=== PATIENT | female | born 1940 | race Caucasian/White ===

== ENCOUNTER 2017-05-26 16:37 | Inpatient (IN) | payer MEDICARE, OTHER ==
[~2017-05-26] VITALS: Ht 165.1 cm; Wt 91.6 kg
[2017-05-26] MEDS ORDERED: ALBUTEROL SULFATE 2.5 MG/3 ML NEBU NEB ONE ×2 (17:00→18:00)
[2017-05-26] MEDS ORDERED: IPRATROPIUM BROMIDE 0.5 MG/2.5 ML NEBU NEB ONE (17:00)
[2017-05-26] MEDS ORDERED: LISI10TA5 PO (17:13)
[2017-05-26] MEDS ORDERED: IPRATROPIUM BROMIDE 0.5 MG/2.5 ML NEBU ONE (17:21)
[2017-05-26] MEDS ORDERED: ALBUTEROL SULFATE 2.5 MG/3 ML NEBU ONE ×2 (17:21→19:28)
[2017-05-26 17:45] LABS: ABG BASE EXCESS 10.4 mmol/L; ABG HCO3 46.1 mmol/L; ABG PCO2 136.2 mmHg (35.0-45.0); ABG PH 7.147 (7.350-7.450); ABG PO2 84.9 mmHg (75.0-100.0); ABG SITE LEFT RADIAL; ABG TOTAL HEMOGLOBIN 16.1 G/dL (12.0-16.0); COHb 2.8 % (0.5-1.5); MetHb 0.2 % (0.0-1.5); O2Hb 90.4 % (94.0-97.0); VENT MODE BIPAP 15/5
[2017-05-26] MEDS ORDERED: methylPREDNISolone SOD SUCC 125 MG/2 ML VIAL IV ONE (18:00)
[2017-05-26 18:12] LABS: ALANINE AMINOTRANSFERASE 126 U/L (14-59); ALKALINE PHOSPHATASE 91 U/L (50-136); ASPARTATE AMINOTRANSFERASE 41 U/L (15-37); BASOPHILS % (AUTO) 0.4 % (0.0-2.0); BILIRUBIN,DIRECT 0.2 mg/dL (0.0-0.2); BILIRUBIN,TOTAL 0.5 mg/dL (0.2-1.0); CARBON DIOXIDE 37 mmol/L (21-32); CHLORIDE 99 mmol/L (98-107); CREATININE 1.2 mg/dL (0.6-1.3); EOSINOPHILS % (AUTO) 0.2 % (0.0-7.0); GLUCOSE 218 mg/dL (74-106); HEMATOCRIT 48.2 % (31.2-41.9); HEMOGLOBIN 15.5 g/dL (10.9-14.3); LYMPHOCYTES # (AUTO) 1.7 K/uL (20.0-40.0); LYMPHOCYTES % (AUTO) 12.6 % (20.5-51.5); MEAN CORPUSCULAR HEMOGLOBIN 29.2 uug (24.7-32.8); MEAN CORPUSCULAR HGB CONC 32 g/dL (32.3-35.6); MEAN CORPUSCULAR VOLUME 90.7 fL (75.5-95.3); MONOCYTES # (AUTO) 1.3 K/uL (2.0-10.0); MONOCYTES % (AUTO) 9.3 % (0.0-11.0); NEUTROPHILS # (AUTO) 10.7 K/uL (1.8-8.9); NEUTROPHILS % (AUTO) 77.5 % (38.5-71.5); PLATELET COUNT (AUTO) 400 K/uL (179-408); POTASSIUM 4.9 mmol/L (3.5-5.1); RED BLOOD CELL COUNT(AUTO) 5.31 MIL/uL (3.63-4.92); TOTAL PROTEIN, SERUM 7.5 g/dL (6.4-8.2); UREA NITROGEN, BLOOD 42 mg/dL (7-18); WHITE BLOOD COUNT (AUTO) 13.7 K/uL (3.8-11.8)
[2017-05-26] MEDS ORDERED: methylPREDNISolone SOD SUCC 125 MG/2 ML VIAL ONE (18:17)
[2017-05-26] MEDS ORDERED: FUROSEMIDE 20 MG/2 ML VIAL IV ONE (18:30)
[2017-05-26] MEDS ORDERED: LEVOFLOXACIN 750 MG/D5W 150 ML PIGGYBACK IV ONE (18:30)
[2017-05-26 18:32] LABS: BAND % (MANUAL) 1 % (0-10); LYMPHOCYTES % (MANUAL) 13 % (20-40); MONOCYTES % (MANUAL) 8 % (2-10)
[2017-05-26 18:36] LABS: NEUTROPHILS % (MANUAL) 78 % (42-75)
[2017-05-26] MEDS ORDERED: FUROSEMIDE 40 MG/4 ML VIAL ONE (19:00)
[2017-05-26] MEDS ORDERED: LEVOFLOXACIN 750MG/D5W 150 ML IV ONE (19:00)
[2017-05-26 19:06] LABS: ABG BASE EXCESS 10.2 mmol/L; ABG PCO2 128.1 mmHg (35.0-45.0); ABG PH 7.164 (7.350-7.450); ABG PO2 68.4 mmHg (75.0-100.0); ABG SITE LEFT RADIAL; ABG TOTAL HEMOGLOBIN 15.9 G/dL (12.0-16.0); COHb 2.6 % (0.5-1.5); MetHb 0.3 % (0.0-1.5); O2Hb 86.1 % (94.0-97.0); VENT MODE BIPAP
[2017-05-26 19:31] LABS: *BLOOD, URINE 2+ (NEGATIVE); *CLARITY,URINE SLIGHTLY CLOUDY (CLEAR); *COLOR,URINE YELLOW (YELLOW); *KETONES,URINE TRACE (NEGATIVE); *UROBILINOGEN,URINE >=8.0 E.U./dl (NORMAL); LEUKOCYTE ESTERASE ,URINE NEGATIVE (NEGATIVE); NITRITE, URINE NEGATIVE (NEGATIVE); UGLUCOSE NEGATIVE (NEGATIVE)
[2017-05-26 19:37] LABS: *PROTEIN,URINE 3+ (NEGATIVE)
[2017-05-26 19:38] LABS: *BILIRUBIN,URIN 1+ (NEGATIVE)
[2017-05-26 19:39] LABS: BACTERIA,URINE FEW /HPF (NONE SEEN); SQUAMOUS EPITHELIAL CELL,UR FEW /HPF (NONE SEEN); WBC,URINE 0-3 /HPF (0-3)
[2017-05-27] VITALS (9 sets, daily range): BP systolic 92–127; BP diastolic 59–81
[2017-05-27] MEDS ORDERED: Z GUARD REMEDY PASTE 57 GM TUBE TOP PRN ×2 (00:45→11:30)
[2017-05-27] MEDS ORDERED: ZOLPIDEM 5 MG TABLET PO PRN (00:45)
[2017-05-27] MEDS ORDERED: ONDANSETRON 4 MG/2 ML VIAL IV PRN (00:45)
[2017-05-27] MEDS ORDERED: ACETAMINOPHEN 325 MG TABLET PO PRN (00:45)
[2017-05-27] MEDS ORDERED: MAGNESIUM HYDROXIDE 30 ML LIQUID UDC PO PRN (00:45)
[2017-05-27] MEDS ORDERED: HYDROCODONE/APAP 5-325MG TABLET PO PRN (00:45)
[2017-05-27] MEDS ORDERED: ENOXAPARIN SODIUM 40 MG/0.4 ML DISP.SYRIN SQ SCH (01:00)
[2017-05-27 01:29] LABS: ABG BASE EXCESS 7.5 mmol/L; ABG HCO3 36.6 mmol/L; ABG PCO2 72.3 mmHg (35.0-45.0); ABG PH 7.322 (7.350-7.450); ABG PO2 79.1 mmHg (75.0-100.0); ABG SITE LEFT RADIAL; COHb 1.9 % (0.5-1.5); MetHb 0.2 % (0.0-1.5); O2Hb 92.3 % (94.0-97.0); VENT MODE BIPAP
[2017-05-27] MEDS: methylPREDNISolone SOD SUCC 125 MG/2 ML VIAL IV SCH ×4 (02:02→22:03)
[2017-05-27] MEDS: ENOXAPARIN SODIUM 40 MG/0.4 ML DISP.SYRIN SQ SCH ×3 (02:02→22:03)
[2017-05-27] MEDS ORDERED: HYDROCORTISONE SOD SUCCINATE 100 MG/2 ML VIAL IV ONE (02:12)
[2017-05-27] MEDS ORDERED: ENOXAPARIN SODIUM 40 MG/0.4 ML DISP.SYRIN SQ ONE ×2 (02:12→02:31)
[2017-05-27 06:18] LABS: BASOPHILS # (AUTO) 0.1 K/uL (0.0-8.0); BASOPHILS % (AUTO) 0.4 % (0.0-2.0); HEMATOCRIT 44.9 % (31.2-41.9); HEMOGLOBIN 14.3 g/dL (10.9-14.3); LYMPHOCYTES # (AUTO) 0.7 K/uL (20.0-40.0); LYMPHOCYTES % (AUTO) 4.4 % (20.5-51.5); MEAN CORPUSCULAR HEMOGLOBIN 28.6 uug (24.7-32.8); MEAN CORPUSCULAR HGB CONC 32 g/dL (32.3-35.6); MEAN CORPUSCULAR VOLUME 89.5 fL (75.5-95.3); MONOCYTES # (AUTO) 0.8 K/uL (2.0-10.0); NEUTROPHILS # (AUTO) 14.8 K/uL (1.8-8.9); NEUTROPHILS % (AUTO) 90.2 % (38.5-71.5); PLATELET COUNT (AUTO) 310 K/uL (179-408); RED BLOOD CELL COUNT(AUTO) 5.02 MIL/uL (3.63-4.92); WHITE BLOOD COUNT (AUTO) 16.3 K/uL (3.8-11.8)
[2017-05-27 06:34] LABS: CARBON DIOXIDE 36 mmol/L (21-32); CHLORIDE 105 mmol/L (98-107); CHOLESTEROL 120 mg/dL (<200); CREATININE 0.9 mg/dL (0.6-1.3); GLUCOSE 163 mg/dL (74-106); HDL CHOLESTEROL 33 mg/dL (40-60); MAGNESIUM 2.1 mg/dL (1.8-2.4); PHOSPHOROUS 4.2 mg/dL (2.5-4.9); POTASSIUM 4.5 mmol/L (3.5-5.1); TRIGLYCERIDES 91 MG/DL (30-150); UREA NITROGEN, BLOOD 38 mg/dL (7-18)
[2017-05-27] MEDS: IPRATROPIUM BROMIDE 0.5 MG/2.5 ML NEBU NEB PRN (08:20)
[2017-05-27] MEDS: ALBUTEROL SULFATE 2.5 MG/ 0.5 ML NEBU NEB PRN (08:20)
[2017-05-27] MEDS: LISINOPRIL 10 MG TABLET PO SCH (09:54)
[2017-05-27] MEDS: FUROSEMIDE 40 MG/4 ML VIAL IV SCH (09:57)
[2017-05-27] MEDS: LEVOFLOXACIN 750MG/D5W 750 MG in PREMIXED 1 EACH IV SCH (18:57)
[2017-05-27] MEDS: NYSTATIN POWDER 15 GM BOTTLE TOP SCH (22:04)
[2017-05-28] VITALS (11 sets, daily range): BP systolic 88–122; BP diastolic 47–66
[2017-05-28] MEDS ORDERED: IOHEXOL 350 100 ML INFUS..BTL ONE (00:13)
[2017-05-28] MEDS ORDERED: NORMAL SALINE FLUSH 10 ML DISP.SYRIN ONE (00:13)
[2017-05-28] MEDS ORDERED: IV NORMAL SALINE 250 ML IV ONE (00:13)
[2017-05-28] MEDS: methylPREDNISolone SOD SUCC 125 MG/2 ML VIAL IV SCH ×3 (06:05→21:12)
[2017-05-28] MEDS: ALBUTEROL SULFATE 2.5 MG/ 0.5 ML NEBU NEB PRN ×2 (08:10→23:03)
[2017-05-28] MEDS: IPRATROPIUM BROMIDE 0.5 MG/2.5 ML NEBU NEB PRN ×2 (08:10→23:03)
[2017-05-28] MEDS: FUROSEMIDE 40 MG/4 ML VIAL IV SCH (08:13)
[2017-05-28] MEDS: LISINOPRIL 10 MG TABLET PO SCH (08:13)
[2017-05-28] MEDS: NYSTATIN POWDER 15 GM BOTTLE TOP SCH ×2 (08:14→20:34)
[2017-05-28] MEDS: LEVOFLOXACIN 750MG/D5W 750 MG in PREMIXED 1 EACH IV SCH (20:18)
[2017-05-28] MEDS: ENOXAPARIN SODIUM 40 MG/0.4 ML DISP.SYRIN SQ SCH (20:29)
[2017-05-29 00:44] VITALS: BP 101/54
[2017-05-29 04:37] VITALS: BP 106/69
[2017-05-29] MEDS: methylPREDNISolone SOD SUCC 125 MG/2 ML VIAL IV SCH ×3 (05:04→21:59)
[2017-05-29 06:53] LABS: BASOPHILS % (AUTO) 0.2 % (0.0-2.0); HEMATOCRIT 45.8 % (31.2-41.9); HEMOGLOBIN 14.7 g/dL (10.9-14.3); LYMPHOCYTES # (AUTO) 0.5 K/uL (20.0-40.0); LYMPHOCYTES % (AUTO) 3.2 % (20.5-51.5); MEAN CORPUSCULAR HEMOGLOBIN 28.7 uug (24.7-32.8); MEAN CORPUSCULAR HGB CONC 32 g/dL (32.3-35.6); MEAN CORPUSCULAR VOLUME 89.7 fL (75.5-95.3); MONOCYTES # (AUTO) 0.6 K/uL (2.0-10.0); MONOCYTES % (AUTO) 3.6 % (0.0-11.0); NEUTROPHILS # (AUTO) 15.6 K/uL (1.8-8.9); PLATELET COUNT (AUTO) 318 K/uL (179-408); RED BLOOD CELL COUNT(AUTO) 5.11 MIL/uL (3.63-4.92); WHITE BLOOD COUNT (AUTO) 16.8 K/uL (3.8-11.8)
[2017-05-29 07:02] LABS: CHLORIDE 102 mmol/L (98-107); GLUCOSE 250 mg/dL (74-106); PHOSPHOROUS 3.7 mg/dL (2.5-4.9); POTASSIUM 4.6 mmol/L (3.5-5.1); UREA NITROGEN, BLOOD 39 mg/dL (7-18)
[2017-05-29] MEDS: LISINOPRIL 10 MG TABLET PO SCH (08:05)
[2017-05-29] MEDS: ASPIRIN EC 81 MG TABLET.DR PO SCH (08:05)
[2017-05-29] MEDS: NYSTATIN POWDER 15 GM BOTTLE TOP SCH ×2 (08:06→21:00)
[2017-05-29] MEDS: FUROSEMIDE 20 MG/2 ML VIAL IVP SCH (08:39)
[2017-05-29] MEDS ORDERED: FUROSEMIDE 40 MG/4 ML VIAL IV SCH (09:00)
[2017-05-29 09:02] LABS: CARBON DIOXIDE 41 mmol/L (21-32)
[2017-05-29 11:00] LABS: MAGNESIUM 2.2 mg/dL (1.8-2.4)
[2017-05-29 11:36] VITALS: BP 101/70
[2017-05-29] MEDS ORDERED: LORAZEPAM 2 MG/1 ML VIAL IV ONE (15:30)
[2017-05-29 16:10] VITALS: BP 102/65
[2017-05-29] MEDS: LEVOFLOXACIN 750MG/D5W 750 MG in PREMIXED 1 EACH IV SCH (18:02)
[2017-05-29 20:00] VITALS: BP 115/76
[2017-05-29] MEDS: ENOXAPARIN SODIUM 40 MG/0.4 ML DISP.SYRIN SQ SCH (22:00)
[2017-05-30 04:41] VITALS: BP 116/86
[2017-05-30] MEDS: methylPREDNISolone SOD SUCC 125 MG/2 ML VIAL IV SCH ×3 (06:02→21:28)
[2017-05-30 07:31] LABS: BASOPHILS % (AUTO) 0.1 % (0.0-2.0); HEMATOCRIT 48.7 % (31.2-41.9); HEMOGLOBIN 15.8 g/dL (10.9-14.3); LYMPHOCYTES # (AUTO) 0.4 K/uL (20.0-40.0); LYMPHOCYTES % (AUTO) 2.3 % (20.5-51.5); MEAN CORPUSCULAR HEMOGLOBIN 29.1 uug (24.7-32.8); MEAN CORPUSCULAR HGB CONC 32 g/dL (32.3-35.6); MEAN CORPUSCULAR VOLUME 89.6 fL (75.5-95.3); MONOCYTES # (AUTO) 0.6 K/uL (2.0-10.0); MONOCYTES % (AUTO) 3.8 % (0.0-11.0); NEUTROPHILS # (AUTO) 14.4 K/uL (1.8-8.9); NEUTROPHILS % (AUTO) 93.8 % (38.5-71.5); PLATELET COUNT (AUTO) 360 K/uL (179-408); RED BLOOD CELL COUNT(AUTO) 5.44 MIL/uL (3.63-4.92); WHITE BLOOD COUNT (AUTO) 15.4 K/uL (3.8-11.8)
[2017-05-30 07:38] LABS: CHLORIDE 99 mmol/L (98-107); CREATININE 0.9 mg/dL (0.6-1.3); GLUCOSE 232 mg/dL (74-106); MAGNESIUM 2.2 mg/dL (1.8-2.4); PHOSPHOROUS 3.7 mg/dL (2.5-4.9); POTASSIUM 4.4 mmol/L (3.5-5.1); UREA NITROGEN, BLOOD 34 mg/dL (7-18)
[2017-05-30] MEDS ORDERED: ACETAzolamide SODIUM 500 MG VIAL IV ONE (08:00)
[2017-05-30 08:05] LABS: CARBON DIOXIDE 44 mmol/L (21-32)
[2017-05-30] MEDS: ASPIRIN EC 81 MG TABLET.DR PO SCH (08:13)
[2017-05-30] MEDS: LISINOPRIL 10 MG TABLET PO SCH (08:13)
[2017-05-30] MEDS: FUROSEMIDE 20 MG/2 ML VIAL IVP SCH (08:25)
[2017-05-30] MEDS: NYSTATIN POWDER 15 GM BOTTLE TOP SCH ×2 (08:34→20:29)
[2017-05-30] MEDS ORDERED: LORAZEPAM 2 MG/1 ML VIAL IV PRN (14:00)
[2017-05-30 14:36] LABS: ABG HCO3 52.9 mmol/L; ABG PCO2 125.5 mmHg (35.0-45.0); ABG PH 7.243 (7.350-7.450); ABG SITE RIGHT RADIAL; ABG TOTAL HEMOGLOBIN 16.3 G/dL (12.0-16.0); COHb 1.9 % (0.5-1.5); MetHb 0.2 % (0.0-1.5); O2Hb 84.6 % (94.0-97.0); VENT MODE Nasal Cannula
[2017-05-30] MEDS: NICOTINE 21 MG/24HR PATCH TD SCH (14:42)
[2017-05-30] MEDS ORDERED: DEXTROSE 50% 50 ML DISP.SYRIN IV PRN (16:00)
[2017-05-30 16:04] VITALS: BP 118/57
[2017-05-30] MEDS: BLOOD SUGAR DIAGNOSTIC 1 EACH STRIP VI SCH ×2 (16:26→21:21)
[2017-05-30] MEDS: ACETAzolamide SODIUM 500 MG VIAL IV SCH (16:40)
[2017-05-30] MEDS: INSULIN REGULAR, HUMAN 300 UNIT/3 ML VIAL SQ PRN (16:48)
[2017-05-30] MEDS: LEVOFLOXACIN 750MG/D5W 750 MG in PREMIXED 1 EACH IV SCH (18:04)
[2017-05-30 20:00] VITALS: BP 111/72
[2017-05-30] MEDS: IPRATROPIUM BROMIDE 0.5 MG/2.5 ML NEBU NEB SCH (20:42)
[2017-05-30] MEDS: ALBUTEROL SULFATE 2.5 MG/3 ML NEBU NEB SCH (20:42)
[2017-05-30] MEDS: ENOXAPARIN SODIUM 40 MG/0.4 ML DISP.SYRIN SQ SCH (21:29)
[2017-05-30] MEDS: INSULIN REGULAR, HUMAN 300 UNITS/3 ML VIAL SQ PRN (21:34)
[2017-05-31 00:20] VITALS: BP 115/56
[2017-05-31 01:05] LABS: ABG BASE EXCESS 16.2 mmol/L; ABG HCO3 47.9 mmol/L; ABG PCO2 96.3 mmHg (35.0-45.0); ABG PH 7.315 (7.350-7.450); ABG PO2 78.7 mmHg (75.0-100.0); ABG SITE RIGHT BRACHIAL; ABG TOTAL HEMOGLOBIN 15.3 G/dL (12.0-16.0); COHb 1.7 % (0.5-1.5); MetHb 0.2 % (0.0-1.5); O2Hb 93.2 % (94.0-97.0); VENT MODE BIPAP
[2017-05-31 04:00] VITALS: BP 104/59
[2017-05-31] MEDS: BLOOD SUGAR DIAGNOSTIC 1 EACH STRIP VI SCH ×4 (06:30→21:48)
[2017-05-31] MEDS: methylPREDNISolone SOD SUCC 125 MG/2 ML VIAL IV SCH ×3 (06:30→21:42)
[2017-05-31 06:51] LABS: BASOPHILS % (AUTO) 0.1 % (0.0-2.0); HEMATOCRIT 50.5 % (31.2-41.9); HEMOGLOBIN 15.7 g/dL (10.9-14.3); LYMPHOCYTES # (AUTO) 0.5 K/uL (20.0-40.0); LYMPHOCYTES % (AUTO) 3.6 % (20.5-51.5); MEAN CORPUSCULAR HEMOGLOBIN 28.4 uug (24.7-32.8); MEAN CORPUSCULAR HGB CONC 31 g/dL (32.3-35.6); MEAN CORPUSCULAR VOLUME 91.4 fL (75.5-95.3); MONOCYTES # (AUTO) 0.6 K/uL (2.0-10.0); MONOCYTES % (AUTO) 4.7 % (0.0-11.0); NEUTROPHILS # (AUTO) 11.7 K/uL (1.8-8.9); NEUTROPHILS % (AUTO) 91.6 % (38.5-71.5); PLATELET COUNT (AUTO) 286 K/uL (179-408); RED BLOOD CELL COUNT(AUTO) 5.52 MIL/uL (3.63-4.92); WHITE BLOOD COUNT (AUTO) 12.8 K/uL (3.8-11.8)
[2017-05-31 07:11] LABS: ALANINE AMINOTRANSFERASE 53 U/L (14-59); ALKALINE PHOSPHATASE 51 U/L (50-136); ASPARTATE AMINOTRANSFERASE 9 U/L (15-37); BILIRUBIN,TOTAL 0.4 mg/dL (0.2-1.0); CHLORIDE 102 mmol/L (98-107); CREATININE 0.8 mg/dL (0.6-1.3); GLUCOSE 154 mg/dL (74-106); MAGNESIUM 2.6 mg/dL (1.8-2.4); PHOSPHOROUS 4.4 mg/dL (2.5-4.9); POTASSIUM 4.7 mmol/L (3.5-5.1); UREA NITROGEN, BLOOD 38 mg/dL (7-18)
[2017-05-31] MEDS ORDERED: ACETAzolamide SODIUM 500 MG VIAL IV ONE (08:00)
[2017-05-31] MEDS: IPRATROPIUM BROMIDE 0.5 MG/2.5 ML NEBU NEB SCH ×4 (08:07→19:39)
[2017-05-31] MEDS: ALBUTEROL SULFATE 2.5 MG/3 ML NEBU NEB SCH ×4 (08:07→19:38)
[2017-05-31 08:26] LABS: ABG HCO3 44.5 mmol/L; ABG PCO2 84.1 mmHg (35.0-45.0); ABG PH 7.341 (7.350-7.450); ABG PO2 76.6 mmHg (75.0-100.0); ABG SITE LEFT RADIAL; ABG TOTAL HEMOGLOBIN 15.6 G/dL (12.0-16.0); COHb 1.7 % (0.5-1.5); MetHb 0.3 % (0.0-1.5); O2Hb 93.5 % (94.0-97.0); VENT MODE BIPAP
[2017-05-31] MEDS: ASPIRIN EC 81 MG TABLET.DR PO SCH (08:45)
[2017-05-31] MEDS: NICOTINE 21 MG/24HR PATCH TD SCH (08:46)
[2017-05-31] MEDS: FUROSEMIDE 20 MG/2 ML VIAL IVP SCH (08:46)
[2017-05-31] MEDS: NYSTATIN POWDER 15 GM BOTTLE TOP SCH ×2 (08:46→21:42)
[2017-05-31] MEDS: LISINOPRIL 10 MG TABLET PO SCH (08:53)
[2017-05-31] MEDS: INSULIN REGULAR, HUMAN 300 UNIT/3 ML VIAL SQ PRN ×4 (08:58→21:52)
[2017-05-31] MEDS: ACETAzolamide SODIUM 500 MG VIAL IV SCH (09:48)
[2017-05-31 11:45] VITALS: BP 107/58
[2017-05-31 15:44] VITALS: BP 106/55
[2017-05-31 19:41] VITALS: BP 110/58
[2017-05-31] MEDS: LEVOFLOXACIN 750MG/D5W 750 MG in PREMIXED 1 EACH IV SCH (19:43)
[2017-05-31] MEDS: ENOXAPARIN SODIUM 40 MG/0.4 ML DISP.SYRIN SQ SCH (21:46)
[2017-06-01] VITALS: BP 115/56
[2017-06-01 04:00] VITALS: BP 112/59
[2017-06-01] MEDS: methylPREDNISolone SOD SUCC 125 MG/2 ML VIAL IV SCH ×3 (05:49→22:50)
[2017-06-01 07:04] LABS: BASOPHILS # (AUTO) 0.1 K/uL (0.0-8.0); BASOPHILS % (AUTO) 0.8 % (0.0-2.0); HEMATOCRIT 49.8 % (31.2-41.9); HEMOGLOBIN 15.9 g/dL (10.9-14.3); LYMPHOCYTES # (AUTO) 0.3 K/uL (20.0-40.0); LYMPHOCYTES % (AUTO) 2.2 % (20.5-51.5); MEAN CORPUSCULAR HEMOGLOBIN 28.8 uug (24.7-32.8); MEAN CORPUSCULAR HGB CONC 32 g/dL (32.3-35.6); MEAN CORPUSCULAR VOLUME 90.4 fL (75.5-95.3); MONOCYTES # (AUTO) 0.5 K/uL (2.0-10.0); MONOCYTES % (AUTO) 4.1 % (0.0-11.0); NEUTROPHILS # (AUTO) 12.1 K/uL (1.8-8.9); NEUTROPHILS % (AUTO) 92.9 % (38.5-71.5); PLATELET COUNT (AUTO) 279 K/uL (179-408)
[2017-06-01] MEDS: ALBUTEROL SULFATE 2.5 MG/3 ML NEBU NEB SCH ×4 (07:11→19:20)
[2017-06-01 07:25] LABS: CHLORIDE 100 mmol/L (98-107); CREATININE 0.8 mg/dL (0.6-1.3); GLUCOSE 193 mg/dL (74-106); MAGNESIUM 2.7 mg/dL (1.8-2.4); PHOSPHOROUS 4.8 mg/dL (2.5-4.9); POTASSIUM 4.7 mmol/L (3.5-5.1); UREA NITROGEN, BLOOD 38 mg/dL (7-18)
[2017-06-01] MEDS: IPRATROPIUM BROMIDE 0.5 MG/2.5 ML NEBU NEB SCH ×4 (07:35→19:20)
[2017-06-01 07:41] LABS: CARBON DIOXIDE 40 mmol/L (21-32)
[2017-06-01 08:04] LABS: CARBON DIOXIDE 41 mmol/L (21-32)
[2017-06-01] MEDS: ASPIRIN EC 81 MG TABLET.DR PO SCH (08:39)
[2017-06-01] MEDS: BLOOD SUGAR DIAGNOSTIC 1 EACH STRIP VI SCH ×4 (08:39→22:23)
[2017-06-01] MEDS: FUROSEMIDE 20 MG/2 ML VIAL IVP SCH (08:40)
[2017-06-01] MEDS: LISINOPRIL 10 MG TABLET PO SCH (08:40)
[2017-06-01] MEDS: NICOTINE 21 MG/24HR PATCH TD SCH (08:40)
[2017-06-01] MEDS: INSULIN REGULAR, HUMAN 300 UNIT/3 ML VIAL SQ PRN ×3 (08:41→17:20)
[2017-06-01] MEDS: NYSTATIN POWDER 15 GM BOTTLE TOP SCH (08:42)
[2017-06-01 08:44] VITALS: BP 113/69
[2017-06-01] MEDS: ACETAzolamide SODIUM 500 MG VIAL IV SCH (09:04)
[2017-06-01 15:10] VITALS: BP 101/53
[2017-06-01 20:00] VITALS: BP 112/69
[2017-06-01] MEDS: LEVOFLOXACIN 750MG/D5W 750 MG in PREMIXED 1 EACH IV SCH (20:06)
[2017-06-01] MEDS: ENOXAPARIN SODIUM 40 MG/0.4 ML DISP.SYRIN SQ SCH (22:09)
[2017-06-01] MEDS: INSULIN REGULAR, HUMAN 300 UNITS/3 ML VIAL SQ PRN (22:20)
[2017-06-02] MEDS: NYSTATIN POWDER 15 GM BOTTLE TOP SCH ×2 (00:15→08:22)
[2017-06-02 00:25] VITALS: BP 120/67
[2017-06-02] MEDS: IPRATROPIUM BROMIDE 0.5 MG/2.5 ML NEBU NEB PRN (03:08)
[2017-06-02] MEDS: ALBUTEROL SULFATE 2.5 MG/ 0.5 ML NEBU NEB PRN (03:09)
[2017-06-02 04:00] VITALS: BP 102/42
[2017-06-02 06:02] LABS: ABG BASE EXCESS 16.5 mmol/L; ABG HCO3 47.9 mmol/L; ABG PCO2 90.2 mmHg (35.0-45.0); ABG PH 7.343 (7.350-7.450); ABG PO2 67.1 mmHg (75.0-100.0); ABG SITE LEFT RADIAL; ABG TOTAL HEMOGLOBIN 16.2 G/dL (12.0-16.0); COHb 1.7 % (0.5-1.5); MetHb 0.3 % (0.0-1.5); O2Hb 91.8 % (94.0-97.0); VENT MODE Nasal Cannula
[2017-06-02] MEDS: methylPREDNISolone SOD SUCC 125 MG/2 ML VIAL IV SCH (06:22)
[2017-06-02] MEDS: BLOOD SUGAR DIAGNOSTIC 1 EACH STRIP VI SCH ×3 (06:45→16:55)
[2017-06-02 07:01] LABS: CHLORIDE 101 mmol/L (98-107); CREATININE 0.9 mg/dL (0.6-1.3); GLUCOSE 199 mg/dL (74-106); MAGNESIUM 2.6 mg/dL (1.8-2.4); PHOSPHOROUS 3.3 mg/dL (2.5-4.9); POTASSIUM 4.4 mmol/L (3.5-5.1); UREA NITROGEN, BLOOD 41 mg/dL (7-18)
[2017-06-02 07:06] LABS: CARBON DIOXIDE 47 mmol/L (21-32)
[2017-06-02 07:07] LABS: EOSINOPHILS % (AUTO) 0.1 % (0.0-7.0); HEMATOCRIT 50.2 % (31.2-41.9); HEMOGLOBIN 16.2 g/dL (10.9-14.3); LYMPHOCYTES # (AUTO) 0.4 K/uL (20.0-40.0); LYMPHOCYTES % (AUTO) 2.6 % (20.5-51.5); MEAN CORPUSCULAR HGB CONC 32 g/dL (32.3-35.6); MONOCYTES # (AUTO) 0.8 K/uL (2.0-10.0); MONOCYTES % (AUTO) 5.8 % (0.0-11.0); NEUTROPHILS # (AUTO) 12.7 K/uL (1.8-8.9); NEUTROPHILS % (AUTO) 91.5 % (38.5-71.5); PLATELET COUNT (AUTO) 274 K/uL (179-408); RED BLOOD CELL COUNT(AUTO) 5.58 MIL/uL (3.63-4.92); WHITE BLOOD COUNT (AUTO) 13.9 K/uL (3.8-11.8)
[2017-06-02] MEDS: ALBUTEROL SULFATE 2.5 MG/3 ML NEBU NEB SCH ×4 (07:42→19:30)
[2017-06-02] MEDS: IPRATROPIUM BROMIDE 0.5 MG/2.5 ML NEBU NEB SCH ×4 (07:42→19:30)
[2017-06-02] MEDS: ACETAzolamide SODIUM 500 MG VIAL IV SCH (08:19)
[2017-06-02] MEDS: FUROSEMIDE 20 MG/2 ML VIAL IVP SCH (08:19)
[2017-06-02] MEDS: ASPIRIN EC 81 MG TABLET.DR PO SCH (08:21)
[2017-06-02] MEDS: NICOTINE 21 MG/24HR PATCH TD SCH (08:21)
[2017-06-02] MEDS: LISINOPRIL 10 MG TABLET PO SCH (08:21)
[2017-06-02 08:23] VITALS: BP 102/57
[2017-06-02] MEDS: INSULIN REGULAR, HUMAN 300 UNIT/3 ML VIAL SQ PRN ×4 (08:30→16:55)
[2017-06-02 14:02] VITALS: BP 100/53
[2017-06-02] MEDS ORDERED: Blood Sugar Diagnostic VI (15:15)
[2017-06-02] MEDS ORDERED: methylPREDNISolone SOD SUCC IV (15:15)
[2017-06-02] MEDS ORDERED: IPRA0.2S6 NEB ×2 (15:15)
[2017-06-02] MEDS ORDERED: ALBU2.5V7 NEB (15:15)
[2017-06-02] MEDS ORDERED: ALBU2.5V13 NEB (15:15)
[2017-06-02] MEDS ORDERED: DEXT50DI8 IV (15:15)
[2017-06-02] MEDS ORDERED: ASPI-618 PO (15:15)
[2017-06-02] MEDS ORDERED: NICO-672 TD (15:15)
[2017-06-02] MEDS ORDERED: ENOX40DI SQ (15:15)
[2017-06-02] MEDS ORDERED: NYST15PO4 TOP (15:15)
[2017-06-02] MEDS ORDERED: ACET500V2 IV (15:15)
[2017-06-02] MEDS ORDERED: INSU100V28 SQ ×2 (15:15)
[2017-06-02] MEDS ORDERED: ACET325T53 PO (15:15)
[2017-06-02] MEDS ORDERED: BUME2TAB3 PO (15:17)
[2017-06-02] MEDS ORDERED: LEVO750T21 PO (15:22)
[2017-06-02] MEDS ORDERED: methylPREDNISolone SOD SUCC 125 MG/2 ML VIAL IV SCH (21:00)
== END 2017-06-02 19:45 | DRG 280 ==
LOC: ER 16:40 → OBSER 20:04 → CCU 05-27 07:55 → TELE 05-28 11:34 → MED 05-29 18:56 → TELE-TD 05-30 16:18
PROVIDERS: ADMIT Internal Medicine; ATTEND Nurse Practitioner Acute Care
PROC: 5A09357 Assistance with Respiratory Ventilation, Less than 24 Consecutive Hours, Continuous Positive Airway Pressure (ICD-10-PCS; principal; 2017-05-26)
DX: I11.0 Hypertensive heart disease with heart failure (principal); J96.21 Acute and chronic respiratory failure with hypoxia; I21.A1 Myocardial infarction type 2; J96.22 Acute and chronic respiratory failure with hypercapnia; J44.1 Chronic obstructive pulmonary disease with (acute) exacerbation; N39.0 Urinary tract infection, site not specified; E44.1 Mild protein-calorie malnutrition; J98.11 Atelectasis; I50.33 Acute on chronic diastolic (congestive) heart failure; E11.65 Type 2 diabetes mellitus with hyperglycemia; E66.01 Morbid (severe) obesity due to excess calories; F17.210 Nicotine dependence, cigarettes, uncomplicated; I50.84 End stage heart failure; Z86.73 Personal history of transient ischemic attack (TIA), and cerebral infarction without residual deficits; I50.810 Right heart failure, unspecified; Z68.33 Body mass index [BMI] 33.0-33.9, adult; Z90.710 Acquired absence of both cervix and uterus; I45.10 Unspecified right bundle-branch block; R74.0 Nonspecific elevation of levels of transaminase and lactic acid dehydrogenase [LDH]; B96.20 Unspecified Escherichia coli [E. coli] as the cause of diseases classified elsewhere
CPT/HCPCS: 36415; 36600; 70030-TC; 70450; 71045; 71275; 83605; 83735; 84100; 85025; 85730; 87040; 87077; 87086; 87400; 92610; 93005; 93307; 94640; 94660; 94664; 97165; A4663; G0378; J1120; J1650; J1720; J1815; J1940; J1956; J2060; J2930; J3490; J3590; J7050; Q9967

== ENCOUNTER 2018-05-21 16:48 | Inpatient (IN) | payer MEDICARE, MEDICAID, OTHER ==
[~2018-05-21] VITALS: Ht 165.1 cm; Wt 88.0 kg
[~2018-05-21 16:48] MED LIST: ACET325T53 PO; ALBU2.5V13 NEB; ALBU2.5V7 NEB; ASPI-618 PO; BUME2TAB3 PO; Blood Sugar Diagnostic VI; DEXT50DI8 IV; ENOX40DI SQ; INSU100V28 SQ; IPRA0.2S6 NEB; LEVO750T21 PO; LISI10TA5 PO; NICO-672 TD; NYST15PO4 TOP; methylPREDNISolone SOD SUCC IV
[2018-05-21] MEDS ORDERED: GLIP5TAB13 PO (17:12)
[2018-05-21] MEDS ORDERED: AZIT250T13 PO (17:12)
[2018-05-21] MEDS ORDERED: DOCU-141 PO (17:12)
[2018-05-21] MEDS ORDERED: IPRA3AMP23 IH (17:12)
[2018-05-21] MEDS ORDERED: HYDR-3326 PO (17:12)
[2018-05-21] MEDS ORDERED: CHOL10005 PO (17:12)
[2018-05-21] MEDS ORDERED: ASPI81TA31 PO (17:12)
[2018-05-21] MEDS ORDERED: ACET-2154 PO (17:12)
[2018-05-21] MEDS ORDERED: MELA3TAB PO (17:12)
[2018-05-21] MEDS ORDERED: ALLO300T2 PO (17:12)
[2018-05-21] MEDS ORDERED: CEFT1VIA15 IV (17:12)
[2018-05-21] MEDS ORDERED: RIVA15TA2 PO (17:12)
[2018-05-21] MEDS ORDERED: DIPH25CA83 PO (17:12)
[2018-05-21] MEDS ORDERED: FAMO-132 PO (17:12)
[2018-05-21] MEDS ORDERED: AZITHROMYCIN IV (17:12)
[2018-05-21 17:21] LABS: EOSINOPHILS # (AUTO) 0.1 K/uL (0.0-0.7); MEAN CORPUSCULAR HEMOGLOBIN 28.5 uug (24.7-32.8); MEAN CORPUSCULAR HGB CONC 32 g/dL (32.3-35.6); MEAN CORPUSCULAR VOLUME 90.2 fL (75.5-95.3)
[2018-05-21 17:23] LABS: BASOPHILS # (AUTO) 0.2 K/uL (0.0-8.0); BASOPHILS % (AUTO) 0.5 % (0.0-2.0); EOSINOPHILS % (AUTO) 0.2 % (0.0-7.0); HEMATOCRIT 38.3 % (31.2-41.9); HEMOGLOBIN 12.1 g/dL (10.9-14.3); MONOCYTES % (AUTO) 3.1 % (0.0-11.0); NEUTROPHILS # (AUTO) 30.7 K/uL (1.8-8.9); NEUTROPHILS % (AUTO) 93.2 % (38.5-71.5); PLATELET COUNT (AUTO) 420 K/uL (179-408); RED BLOOD CELL COUNT(AUTO) 4.25 MIL/uL (3.63-4.92)
[2018-05-21 17:25] LABS: ALANINE AMINOTRANSFERASE 20 U/L (14-59); ALKALINE PHOSPHATASE 90 U/L (50-136); ASPARTATE AMINOTRANSFERASE 10 U/L (15-37); BILIRUBIN,DIRECT 0.1 mg/dL (0.0-0.2); BILIRUBIN,TOTAL 0.3 mg/dL (0.2-1.0); CHLORIDE 99 mmol/L (98-107); CREATININE 1.5 mg/dL (0.6-1.3); GLUCOSE 176 mg/dL (74-106); TOTAL PROTEIN, SERUM 7.6 g/dL (6.4-8.2); UREA NITROGEN, BLOOD 42 mg/dL (7-18)
[2018-05-21 17:28] LABS: WHITE BLOOD COUNT (AUTO) 32.9 K/uL (3.8-11.8)
[2018-05-21 17:29] LABS: CARBON DIOXIDE 41 mmol/L (21-32)
[2018-05-21 17:39] LABS: *BILIRUBIN,URIN 1+ (NEGATIVE); *BLOOD, URINE 3+ (NEGATIVE); *KETONES,URINE NEGATIVE (NEGATIVE); NITRITE, URINE NEGATIVE (NEGATIVE); PH,URINE 5.5 (5.0-8.0); UGLUCOSE NEGATIVE (NEGATIVE)
[2018-05-21] MEDS ORDERED: IV NORMAL SALINE 1000 ML BAG IV ONE ×2 (17:45→19:15)
[2018-05-21] MEDS ORDERED: PIPERACILLIN SODIUM/TAZOBACTAM 3.375 G in IV DEXTROSE 5% 50 ML IV ONE (17:45)
[2018-05-21] MEDS ORDERED: LEVOFLOXACIN 500 MG/D5W 100ML PIGGYBACK IV ONE (17:45)
--- NOTE | 2018-05-21 17:45 | NUR ---
DR VAZQUEZ AT THE BEDSIDE FOR MSE.
[2018-05-21 17:49] LABS: BAND % (MANUAL) 24 % (0-10); LYMPHOCYTES % (MANUAL) 3 % (20-40); MONOCYTES % (MANUAL) 3 % (2-10); NEUTROPHILS % (MANUAL) 70 % (42-75)
[2018-05-21] MEDS ORDERED: LEVOFLOXACIN 500 MG/D5W 100 ML ONE (17:50)
[2018-05-21] MEDS ORDERED: PIPERACILLIN SODIUM/TAZO 3.375 GM VIAL ONE (17:50)
[2018-05-21 17:53] LABS: ABG BASE EXCESS 9.1 mmol/L; ABG HCO3 40.8 mmol/L; ABG PCO2 104.8 mmHg (35.0-45.0); ABG PH 7.208 (7.350-7.450); ABG PO2 82.5 mmHg (75.0-100.0); ABG SITE LEFT RADIAL; ABG TOTAL HEMOGLOBIN 12.6 G/dL (12.0-16.0); COHb 2.1 % (0.5-1.5); MetHb 0.1 % (0.0-1.5); O2Hb 93.1 % (94.0-97.0); VENT MODE Nasal Cannula
[2018-05-21 17:55] LABS: *CLARITY,URINE TURBID (CLEAR); *COLOR,URINE BROWN (YELLOW)
[2018-05-21 17:56] LABS: LEUKOCYTE ESTERASE ,URINE 1+ (NEGATIVE)
[2018-05-21 17:58] LABS: BACTERIA,URINE MANY /HPF (NONE SEEN); MUCUS,URINE MODERATE /LPF (0-FEW); RBC,URINE 80-100 /HPF (0-3); SQUAMOUS EPITHELIAL CELL,UR MANY /HPF (NONE SEEN); WBC,URINE 20-50 /HPF (0-3)
--- NOTE | 2018-05-21 18:00 | NUR ---
PT PLACED ON BIPAP PER ER MD VERBAL ORDER POST ABG RESULTS. PT TOLERATING BIPAP MASK AND SETTINGS WELL. BIPAP PARAMETERS AND ALARMS ARE SET. PT IS ON BIPAP ON SETTINGS OF IPAP 15, EPAP 5, RATE 20, 30% FIO2. PT IS PASSIVE, NOT RESPONDING VERBALLY, SON IS AT BEDSIDE. BIPAP PLUGGED INTO RED OUTLET. NO RESP. DISTRESS NOTED AT THIS TIME. WILL CONTINUE TO MONITOR.
--- NOTE | 2018-05-21 18:00 | NUR ---
PT PLACED ON BIPAP BY RT,PT TOLORATED WELL SO FAR.
--- NOTE | 2018-05-21 19:45 | NUR ---
Report given to [facility]
--- NOTE | 2018-05-21 20:00 | NUR ---
Pt received into care, Alert and oriented x 2, on Bipap. No respiratory distress noted. Skin assessment performed. Redness noted to bilateral outer thighs. Pictures taken and placed in chart. Unable to assess skin on backside as pt refused to turn. Pt is uncooperative. Weakness noted to bilateral upper extremities and bilateral lower extremities. Pt offered water but refused. Will continue to monitor.
--- NOTE | 2018-05-21 20:00 | NUR ---
Pt. admitted to [facility] , under care of Arnel Gallagher DNP [place]ongs List completed Dx: PNA/UTI MRSA swab done
[2018-05-21 20:53] VITALS: BP 87/39
[2018-05-21 21:00] VITALS: BP 74/51
[2018-05-21 21:12] VITALS: BP 122/54
[2018-05-21] MEDS ORDERED: IV NS 1000 ML 1,000 ML IV PRN (21:21)
[2018-05-21] MEDS ORDERED: ONDANSETRON 4 MG/2 ML VIAL IV PRN (21:30)
[2018-05-21] MEDS ORDERED: Z GUARD REMEDY PASTE 57 GM TUBE TOP PRN (21:30)
[2018-05-21 21:34] LABS: ABG HCO3 36.9 mmol/L; ABG PCO2 80.8 mmHg (35.0-45.0); ABG PH 7.277 (7.350-7.450); ABG PO2 64.1 mmHg (75.0-100.0); ABG SITE RIGHT RADIAL; ABG TOTAL HEMOGLOBIN 13.8 G/dL (12.0-16.0); COHb 2.2 % (0.5-1.5); MetHb 0.1 % (0.0-1.5); O2Hb 90.6 % (94.0-97.0); VENT MODE BIPAP 15/5
[2018-05-21] MEDS ORDERED: MEROPENEM 1 G in IV NORMAL SALINE 100 ML IV SCH (22:00)
[2018-05-21] MEDS ORDERED: VANCOMYCIN 1000 MG VIAL ONE (22:20)
[2018-05-21] MEDS ORDERED: VANCOMYCIN HCL 500 MG VIAL ONE (22:20)
[2018-05-21] MEDS ORDERED: MEROPENEM 1 G VIAL IV ONE (22:20)
[2018-05-21] MEDS ORDERED: VANCOMYCIN IV 1,500 MG in IV DEXTROSE 5% 500 ML IV ONE (22:30)
[2018-05-21 23:19] LABS: *CREATININE,URINE 125.7 mg/dL (30-125); *URINE TOTAL PROTEIN RANDOM 236.4 mg/dL (<150/24HR)
[2018-05-21] MEDS: IPRATROPIUM BROMIDE 0.5 MG/2.5 ML NEBU NEB SCH (23:35)
[2018-05-21] MEDS: ALBUTEROL SULFATE 2.5 MG/ 0.5 ML NEBU NEB SCH (23:35)
[2018-05-22] VITALS (10 sets, daily range): BP systolic 95–129; BP diastolic 43–65
[2018-05-22 00:35] LABS: ABG BASE EXCESS 7.6 mmol/L; ABG HCO3 34.5 mmol/L; ABG PCO2 60.5 mmHg (35.0-45.0); ABG PH 7.374 (7.350-7.450); ABG PO2 73.5 mmHg (75.0-100.0); ABG SITE RIGHT RADIAL; ABG TOTAL HEMOGLOBIN 11.6 G/dL (12.0-16.0); COHb 1.8 % (0.5-1.5); MetHb 0.3 % (0.0-1.5); O2Hb 94.3 % (94.0-97.0); VENT MODE BIPAP 18/8
--- NOTE | 2018-05-22 01:28 | NUR ---
RECEIVED PATIENT ON BiPAP ON THE FOLLOWING SETTINGS: IPAP 15, EPAP 5, RATE 20, 30% FIO2. MEPILEX IS PLACED ON FACE/NOSE TO PROTECT SKIN BREAKDOWN. ABG DRAWN AND RESULTS GIVEN TO NURSE. BiPAP SETTINGS CHANGED PER MD ORDERS POST ABG. BiPAP SETTINGS ARE NOW: IPAP 18, EPAP 8, RATE 24, AND 30% FiO2. PATIENT REMOVED MEPILEX AND REFUSES TO PUT IT BACK ON. HHN TX GIVEN PER MD ORDERS AND TOLERATED WELL WITH NO ADVERSE REACTIONS NOTED. AMBU BAG IS BY BEDSIDE. PATIENT IS TOLERATING BiPAP WELL AT THIS TIME. NO SOB NOTED. WILL CONTINUE TO MONITOR.
[2018-05-22] MEDS: IPRATROPIUM BROMIDE 0.5 MG/2.5 ML NEBU NEB SCH ×6 (03:15→22:55)
[2018-05-22] MEDS: ALBUTEROL SULFATE 2.5 MG/ 0.5 ML NEBU NEB SCH ×6 (03:15→22:55)
[2018-05-22 07:01] LABS: ALANINE AMINOTRANSFERASE 16 U/L (14-59); ALKALINE PHOSPHATASE 70 U/L (50-136); ASPARTATE AMINOTRANSFERASE 13 U/L (15-37); BILIRUBIN,TOTAL 0.2 mg/dL (0.2-1.0); CARBON DIOXIDE 33 mmol/L (21-32); CHLORIDE 104 mmol/L (98-107); CHOLESTEROL 105 mg/dL (<200); GLUCOSE 77 mg/dL (74-106); HDL CHOLESTEROL 11 mg/dL (40-60); MAGNESIUM 1.9 mg/dL (1.8-2.4); PHOSPHOROUS 2.1 mg/dL (2.5-4.9); POTASSIUM 3.8 mmol/L (3.5-5.1); TOTAL PROTEIN, SERUM 6.3 g/dL (6.4-8.2); TRIGLYCERIDES 140 MG/DL (30-150); UREA NITROGEN, BLOOD 38 mg/dL (7-18)
[2018-05-22 07:03] LABS: THYROID STIMULATING HORMONE 1.373 mIU/mL (0.358-3.740)
[2018-05-22 07:44] LABS: BASOPHILS # (AUTO) 0.1 K/uL (0.0-8.0)
[2018-05-22] MEDS: ALLOPURINOL 300 MG TABLET PO SCH (07:56)
[2018-05-22] MEDS: RIVAROXABAN 15 MG TABLET PO SCH (07:58)
[2018-05-22] MEDS: MEROPENEM 1 G in IV NORMAL SALINE 100 ML IV SCH ×2 (07:59→21:52)
[2018-05-22 08:01] LABS: BASOPHILS % (AUTO) 0.3 % (0.0-2.0); EOSINOPHILS # (AUTO) 0.1 K/uL (0.0-0.7); EOSINOPHILS % (AUTO) 0.6 % (0.0-7.0); LYMPHOCYTES # (AUTO) 1.1 K/uL (20.0-40.0); MEAN CORPUSCULAR HEMOGLOBIN 28.3 uug (24.7-32.8); MEAN CORPUSCULAR HGB CONC 31 g/dL (32.3-35.6); MEAN CORPUSCULAR VOLUME 91.1 fL (75.5-95.3); MONOCYTES # (AUTO) 0.8 K/uL (2.0-10.0); MONOCYTES % (AUTO) 3.6 % (0.0-11.0); NEUTROPHILS # (AUTO) 20.7 K/uL (1.8-8.9); NEUTROPHILS % (AUTO) 90.5 % (38.5-71.5); PLATELET COUNT (AUTO) 358 K/uL (179-408)
[2018-05-22 08:02] LABS: WHITE BLOOD COUNT (AUTO) 22.9 K/uL (3.8-11.8)
[2018-05-22 08:03] LABS: HEMATOCRIT 33.8 % (31.2-41.9); HEMOGLOBIN 10.5 g/dL (10.9-14.3)
[2018-05-22] MEDS ORDERED: ASPIRIN 81 MG TAB.CHEW PO SCH (09:00)
[2018-05-22 09:31] LABS: BAND % (MANUAL) 16 % (0-10); LYMPHOCYTES % (MANUAL) 5 % (20-40); MONOCYTES % (MANUAL) 3 % (2-10)
[2018-05-22 09:39] LABS: NEUTROPHILS % (MANUAL) 76 % (42-75)
[2018-05-22] MEDS ORDERED: DILTIAZEM HCL IV 125 MG in IV DEXTROSE 5% 100 ML IV PRN (09:45)
[2018-05-22 10:24] LABS: ABG BASE EXCESS 6.6 mmol/L; ABG PCO2 56.2 mmHg (35.0-45.0); ABG PH 7.386 (7.350-7.450); ABG PO2 66.4 mmHg (75.0-100.0); ABG SITE LEFT RADIAL; COHb 1.7 % (0.5-1.5); MetHb 0.3 % (0.0-1.5); O2Hb 92.4 % (94.0-97.0); VENT MODE Nasal Cannula
[2018-05-22] MEDS ORDERED: METOPROLOL TARTRATE 25 MG TABLET PO ONE (12:00)
--- NOTE | 2018-05-22 12:07 | NUR ---
CLINICAL PHARMACY NOTE: VANCOMYCIN PHARMACY TO DOSE Subjective: To start vancomycin in this 78 y/o female for indication of PNA Objective: weight 87 kg height 165 cm BMI 32.3 BUN 38 scr 1.0 wbc 32.9 temp 98.1 1500mg dose x 1 given in ER 05/21 @ 2130 Assessment/Plan Will start vancomycin regimen of 1500mg q12h for estimated trough of 16.9, second dose tonight at 2130. Will order trough before 4th scheduled dose (not ordered yet). Will dose per level instead if renal function were to become unstable. Will follow
--- NOTE | 2018-05-22 14:24 | NUR ---
Pt converted to SNR 80's with pacs bp 95/[address] Gallagher of conversion.
--- NOTE | 2018-05-22 15:55 | NUR ---
Dr Cai D/Pa hopson. Daughter at bedside.
[2018-05-22] MEDS ORDERED: AMIODARONE HCL IV 150 MG in IV DEXTROSE 5% 100 ML IV ONE (16:45)
[2018-05-22] MEDS ORDERED: AMIODARONE HCL IV 900 MG in IV DEXTROSE 5% 482 ML IV PRN (16:45)
[2018-05-22] MEDS ORDERED: NEUTRA PHOS PACKET PO ONE (18:00)
[2018-05-22] MEDS: FAMOTIDINE 20 MG TABLET PO SCH (21:52)
[2018-05-22] MEDS: VANCOMYCIN IV 1,500 MG in IV DEXTROSE 5% 500 ML IV SCH (21:53)
[2018-05-23 00:05] VITALS: BP 128/73
[2018-05-23] MEDS: IPRATROPIUM BROMIDE 0.5 MG/2.5 ML NEBU NEB SCH ×6 (02:30→23:06)
[2018-05-23] MEDS: ALBUTEROL SULFATE 2.5 MG/ 0.5 ML NEBU NEB SCH ×6 (02:30→23:06)
[2018-05-23 04:00] VITALS: BP 111/69
--- NOTE | 2018-05-23 06:00 | NUR ---
REMAINS CONFUSED, ATTEMPTS TO SWING AT PEOPLE. CONTINUES ON AMIODARONE GTT HR IN 100'S.
[2018-05-23 06:28] LABS: BASOPHILS # (AUTO) 0.1 K/uL (0.0-8.0); BASOPHILS % (AUTO) 0.4 % (0.0-2.0); EOSINOPHILS # (AUTO) 0.1 K/uL (0.0-0.7); EOSINOPHILS % (AUTO) 0.5 % (0.0-7.0); HEMATOCRIT 31.4 % (31.2-41.9); HEMOGLOBIN 10.2 g/dL (10.9-14.3); LYMPHOCYTES % (AUTO) 10.3 % (20.5-51.5); MEAN CORPUSCULAR HEMOGLOBIN 29.2 uug (24.7-32.8); MEAN CORPUSCULAR HGB CONC 33 g/dL (32.3-35.6); MONOCYTES # (AUTO) 0.9 K/uL (2.0-10.0); MONOCYTES % (AUTO) 4.7 % (0.0-11.0); NEUTROPHILS % (AUTO) 84.1 % (38.5-71.5); PLATELET COUNT (AUTO) 401 K/uL (179-408); RED BLOOD CELL COUNT(AUTO) 3.49 MIL/uL (3.63-4.92)
[2018-05-23 06:33] LABS: CARBON DIOXIDE 35 mmol/L (21-32); CHLORIDE 104 mmol/L (98-107); CREATININE 0.7 mg/dL (0.6-1.3); GLUCOSE 121 mg/dL (74-106); MAGNESIUM 1.9 mg/dL (1.8-2.4); PHOSPHOROUS 2.3 mg/dL (2.5-4.9); POTASSIUM 3.4 mmol/L (3.5-5.1); UREA NITROGEN, BLOOD 26 mg/dL (7-18)
[2018-05-23 07:16] VITALS: BP 129/62
[2018-05-23] MEDS: ALLOPURINOL 300 MG TABLET PO SCH (07:54)
[2018-05-23] MEDS: RIVAROXABAN 15 MG TABLET PO SCH (07:55)
--- NOTE | 2018-05-23 08:00 | NUR ---
AWAKE ALERT AND VERBALLY RESPONSIVE BUT SOME WHAT FORGETFUL AGD RESULTS NOTED WILL FOLLOW-UP WITH TRACK LAYING MACHINE OPERATOR.
[2018-05-23 08:17] LABS: ABG BASE EXCESS 6.4 mmol/L; ABG HCO3 34.2 mmol/L; ABG PCO2 67.2 mmHg (35.0-45.0); ABG PH 7.325 (7.350-7.450); ABG PO2 67.3 mmHg (75.0-100.0); ABG SITE LEFT RADIAL; ABG TOTAL HEMOGLOBIN 11.3 G/dL (12.0-16.0); MetHb 0.1 % (0.0-1.5); O2Hb 90.7 % (94.0-97.0)
[2018-05-23] MEDS: MEROPENEM 1 G in IV NORMAL SALINE 100 ML IV SCH ×2 (08:54→21:19)
[2018-05-23 09:09] LABS: BAND % (MANUAL) 2 % (0-10); EOSINOPHILS % (MANUAL) 2 % (0-8); LYMPHOCYTES % (MANUAL) 16 % (20-40); MONOCYTES % (MANUAL) 5 % (2-10); NEUTROPHILS % (MANUAL) 71 % (42-75); REACTIVE LYMPHOCYTES 4 % (0-0)
[2018-05-23] MEDS ORDERED: FUROSEMIDE 40 MG/4 ML VIAL IV ONE (09:15)
--- NOTE | 2018-05-23 10:00 | NUR ---
VERY POOR VEIN FOR IV ACCESS WILL PROBABLY NEED MIDLINE. WILL NOTIFY
[2018-05-23 11:16] VITALS: BP 135/56
--- NOTE | 2018-05-23 11:29 | NUR ---
CLINICAL PHARMACY NOTE: VANCOMYCIN PHARMACY TO DOSE Subjective: To continue vancomycin in this 78 y/o female for indication of PNA Objective: weight 87 kg height 165 cm BMI 32.3 BUN 26 scr 0.7 wbc 19 temp 98.4 1500mg dose x 1 given in ER 05/21 @ 2130 Assessment/Plan Will continue same dose of vancomycin 1500mg IVPB q24h for today. 3rd dose tonight at 2130. Will order trough before 4th scheduled dose (not ordered yet). . Will follow
--- NOTE | 2018-05-23 11:51 | NUR ---
MIDLINE INSERTION COMPLETED BOTH ARMS
[2018-05-23] MEDS ORDERED: POTASSIUM CHLORIDE 20 MEQ TAB.PRT.SR PO ONE (12:45)
--- NOTE | 2018-05-23 14:18 | NUR ---
SEEN BY TONIO ODEN, AND DR MC FOR FOLLOW-UP SEE NOTES. WILL NEED BI-PAP AT NIGHT ENDORSED TO RT
[2018-05-23 15:03] VITALS: BP 147/52
[2018-05-23] MEDS ORDERED: NEUTRA PHOS PACKET PO ONE (15:45)
[2018-05-23] MEDS: AMIODARONE HCL 200 MG TABLET PO SCH ×2 (15:46→21:21)
--- NOTE | 2018-05-23 17:23 | NUR ---
PLAN DC TO [facility] WHEN MEDICALLY STABLE. STARTED ON PO AMIODARONE. ATRIAL TACH ON MONITOR RANGING FROM 100 - 110. NO ACUTE RESP DISTRESS. PER HOSE COUPLING JOINER DR MAYFIELD NO EDWARDS CATHETER
--- NOTE | 2018-05-23 19:38 | NUR ---
PATIENT IS AWAKE, AAOX1 WITH CONFUSION AND FORGETFULNESS. NO S/S OF PAIN OR ACUTE DISTRESS ON ASSESSMENT. NO FEVER AT THIS TIME. SAFETY MEASURES IN PLACE, CALL LIGHT LEFT WITHIN PATIENT'S REACH
[2018-05-23 20:12] VITALS: BP 133/53
--- NOTE | 2018-05-23 20:45 | NUR ---
PT AWAKE AND ALERT, PLACED PT ON BIPAP PER MD. PT TOLERATING BIPAP WELL. WILL CONTINUE TO MONITOR.
[2018-05-23] MEDS: CULTURELLE CAPSULE PO SCH (21:20)
[2018-05-23] MEDS: FAMOTIDINE 20 MG TABLET PO SCH (21:20)
[2018-05-23] MEDS: VANCOMYCIN IV 1,500 MG in IV DEXTROSE 5% 500 ML IV SCH (21:54)
--- NOTE | 2018-05-23 23:15 | NUR ---
PT WANTS BIPAP OFF AND REFUSED TO CONTINUE BIPAP. PLACED ON NC 2LPM , SPO2 98% RN AWARE.
--- NOTE | 2018-05-23 23:28 | NUR ---
PATIENT REFUSING BIPAP, O2 SAT AT 98% ON 2LPM. WILL CONTINUE TO MONITOR PATIENT
[2018-05-24] VITALS (7 sets, daily range): BP systolic 102–120; BP diastolic 49–71
[2018-05-24] MEDS: IPRATROPIUM BROMIDE 0.5 MG/2.5 ML NEBU NEB SCH ×6 (02:56→22:53)
[2018-05-24] MEDS: ALBUTEROL SULFATE 2.5 MG/ 0.5 ML NEBU NEB SCH ×6 (02:56→22:53)
--- NOTE | 2018-05-24 06:13 | NUR ---
PATIENT SLEPT WELL THROUGHOUT THIS SHIFT, NO S/S PAIN OR ACUTE DISTRESS NOTED, NO FEVER. NO FURTHER CHANGES IN STATUS, ALL NEEDS MET AND ANTICIPATED.
[2018-05-24 06:48] LABS: BASOPHILS # (AUTO) 0.1 K/uL (0.0-8.0); BASOPHILS % (AUTO) 1.1 % (0.0-2.0); EOSINOPHILS # (AUTO) 0.3 K/uL (0.0-0.7); HEMATOCRIT 31.7 % (31.2-41.9); HEMOGLOBIN 10.1 g/dL (10.9-14.3); LYMPHOCYTES # (AUTO) 1.7 K/uL (20.0-40.0); MEAN CORPUSCULAR HEMOGLOBIN 28.4 uug (24.7-32.8); MEAN CORPUSCULAR HGB CONC 32 g/dL (32.3-35.6); MEAN CORPUSCULAR VOLUME 89.2 fL (75.5-95.3); MONOCYTES # (AUTO) 0.7 K/uL (2.0-10.0); MONOCYTES % (AUTO) 5.5 % (0.0-11.0); NEUTROPHILS # (AUTO) 10.5 K/uL (1.8-8.9); NEUTROPHILS % (AUTO) 78.4 % (38.5-71.5); PLATELET COUNT (AUTO) 314 K/uL (179-408); RED BLOOD CELL COUNT(AUTO) 3.55 MIL/uL (3.63-4.92); WHITE BLOOD COUNT (AUTO) 13.4 K/uL (3.8-11.8)
[2018-05-24 07:05] LABS: CARBON DIOXIDE 38 mmol/L (21-32); CHLORIDE 104 mmol/L (98-107); CREATININE 0.7 mg/dL (0.6-1.3); GLUCOSE 100 mg/dL (74-106); MAGNESIUM 1.9 mg/dL (1.8-2.4); PHOSPHOROUS 3.4 mg/dL (2.5-4.9); POTASSIUM 3.8 mmol/L (3.5-5.1); UREA NITROGEN, BLOOD 16 mg/dL (7-18)
[2018-05-24] MEDS: RIVAROXABAN 15 MG TABLET PO SCH (07:51)
[2018-05-24] MEDS: ACETAMINOPHEN 325 MG TABLET PO PRN ×3 (07:51→21:21)
[2018-05-24] MEDS: CULTURELLE CAPSULE PO SCH ×2 (07:52→21:15)
[2018-05-24] MEDS: ALLOPURINOL 300 MG TABLET PO SCH (07:52)
[2018-05-24] MEDS: AMIODARONE HCL 200 MG TABLET PO SCH ×2 (07:53→21:16)
--- NOTE | 2018-05-24 08:00 | NUR ---
AWAKE ALERT AND RESPONDING APPROPRIATELY, ABLE TO PARTICIPATE WITH ADLS. SR/ATRIAL TACH ON MONITOR
[2018-05-24] MEDS: MEROPENEM 1 G in IV NORMAL SALINE 100 ML IV SCH ×2 (09:03→21:15)
[2018-05-24 09:17] LABS: ABG BASE EXCESS 16.1 mmol/L; ABG HCO3 43.2 mmol/L; ABG PCO2 66.6 mmHg (35.0-45.0); ABG PO2 38.6 mmHg (75.0-100.0); ABG SITE LEFT RADIAL; ABG TOTAL HEMOGLOBIN 11.5 G/dL (12.0-16.0); COHb 1.7 % (0.5-1.5); MetHb 0.2 % (0.0-1.5); O2Hb 73.7 % (94.0-97.0); VENT MODE ROOM AIR
--- NOTE | 2018-05-24 09:28 | NUR ---
RESULTS OF ABG IN STARTED ON BI-PAP. SETS AT IPAP=18, EPAP=8, RR=24, 30% O2. CLOSELY MONITORED
--- NOTE | 2018-05-24 12:02 | NUR ---
PER PT REQUEST BIPAP WAS REMOVED. PT AWAKE ALERT RESPONSIVE SHOWING NO SIGNS OF RESPIRATORY DISTRESS. PT PLACED ON 2LPM NC WITH SPO2 AT 95%. WILL CONTINUE TO CLOSELY MONITOR
[2018-05-24 12:53] LABS: BAND % (MANUAL) 5 % (0-10); EOSINOPHILS % (MANUAL) 2 % (0-8); LYMPHOCYTES % (MANUAL) 12 % (20-40); METAMYELOCYTES % 2 % (0-1); MONOCYTES % (MANUAL) 5 % (2-10); MYELOCYTES % 4 % (0-0); NEUTROPHILS % (MANUAL) 70 % (42-75)
--- NOTE | 2018-05-24 13:10 | NUR ---
SEEN BY DR MC SEE NOTES
--- NOTE | 2018-05-24 13:44 | NUR ---
CLINICAL PHARMACY NOTE: VANCOMYCIN PHARMACY TO DOSE Subjective: To continue vancomycin in this 78 y/o female for indication of PNA Objective: weight 87 kg height 165 cm BMI 32.3 BUN 16 scr 0.7 wbc 13.4 temp 97.9 Trough due tonight at 2100 pending Assessment/Plan Will continue same dose of vancomycin 1500mg IVPB q24h for today. Trough due tonight at 2100 before 4th scheduled dose. RN endorsed to hold dose if Tr >20. Will check in am and adjust as needed. Will follow
--- NOTE | 2018-05-24 18:32 | NUR ---
SEEN BY DR ELIZALDE, SEE NOTES REGARDING AMIODARONE DOSING AND ADVISED TO REINFORCE BIPAP AT NIGHT
--- NOTE | 2018-05-24 18:34 | NUR ---
SR WITH MULTIPLE PACS ON MONITOR
[2018-05-24] MEDS: FAMOTIDINE 20 MG TABLET PO SCH (21:15)
[2018-05-24] MEDS: VANCOMYCIN IV 1,500 MG in IV DEXTROSE 5% 500 ML IV SCH (21:32)
[2018-05-25] MEDS: ALBUTEROL SULFATE 2.5 MG/ 0.5 ML NEBU NEB SCH ×4 (03:16→15:23)
[2018-05-25] MEDS: IPRATROPIUM BROMIDE 0.5 MG/2.5 ML NEBU NEB SCH ×4 (03:16→15:23)
[2018-05-25 04:45] VITALS: BP 117/60
[2018-05-25 06:59] LABS: EOSINOPHILS # (AUTO) 0.4 K/uL (0.0-0.7); MONOCYTES # (AUTO) 0.8 K/uL (2.0-10.0); NEUTROPHILS # (AUTO) 8.7 K/uL (1.8-8.9)
[2018-05-25 07:02] LABS: CHLORIDE 105 mmol/L (98-107); CREATININE 0.7 mg/dL (0.6-1.3); GLUCOSE 117 mg/dL (74-106); MAGNESIUM 2.1 mg/dL (1.8-2.4); PHOSPHOROUS 3.1 mg/dL (2.5-4.9); POTASSIUM 3.9 mmol/L (3.5-5.1); UREA NITROGEN, BLOOD 19 mg/dL (7-18)
[2018-05-25 07:18] LABS: BASOPHILS % (AUTO) 0.4 % (0.0-2.0); HEMATOCRIT 30.3 % (31.2-41.9); HEMOGLOBIN 9.7 g/dL (10.9-14.3); LYMPHOCYTES # (AUTO) 1.9 K/uL (20.0-40.0); LYMPHOCYTES % (AUTO) 16.4 % (20.5-51.5); MEAN CORPUSCULAR HGB CONC 32 g/dL (32.3-35.6); MEAN CORPUSCULAR VOLUME 90.6 fL (75.5-95.3); MONOCYTES % (AUTO) 6.6 % (0.0-11.0); NEUTROPHILS % (AUTO) 73.6 % (38.5-71.5); PLATELET COUNT (AUTO) 428 K/uL (179-408); RED BLOOD CELL COUNT(AUTO) 3.35 MIL/uL (3.63-4.92); WHITE BLOOD COUNT (AUTO) 11.8 K/uL (3.8-11.8)
[2018-05-25 07:38] LABS: CARBON DIOXIDE 42 mmol/L (21-32)
--- NOTE | 2018-05-25 07:41 | NUR ---
Pt rested well in between care; incontinent of stoolx2; bipap on for 4-5 hours; continue to monitor
--- NOTE | 2018-05-25 08:00 | NUR ---
RECIEVED PT AWAKE AND OREIENTED AND VERY PLEASANT AND COOPERATIVE.PT ABLE TO EAT BY HERSELF WITH VERY LITTLE ASSIST.
[2018-05-25 09:34] LABS: BAND % (MANUAL) 1 % (0-10); BASOPHILS % (MANUAL) 1 % (0-2); EOSINOPHILS % (MANUAL) 5 % (0-8); LYMPHOCYTES % (MANUAL) 15 % (20-40); METAMYELOCYTES % 3 % (0-1); MONOCYTES % (MANUAL) 4 % (2-10); MYELOCYTES % 8 % (0-0); NEUTROPHILS % (MANUAL) 63 % (42-75)
[2018-05-25] MEDS: MEROPENEM 1 G in IV NORMAL SALINE 100 ML IV SCH (09:35)
[2018-05-25] MEDS: ALLOPURINOL 300 MG TABLET PO SCH (09:35)
[2018-05-25] MEDS: CULTURELLE CAPSULE PO SCH (09:35)
[2018-05-25] MEDS: RIVAROXABAN 15 MG TABLET PO SCH (09:36)
[2018-05-25] MEDS: AMIODARONE HCL 200 MG TABLET PO SCH (09:38)
[2018-05-25 11:12] VITALS: BP 128/70
[2018-05-25] MEDS ORDERED: MERO1VIA3 IV (11:56)
[2018-05-25] MEDS ORDERED: LACT1CAP57 PO (11:57)
[2018-05-25] MEDS ORDERED: AMIO200T6 PO (11:57)
--- NOTE | 2018-05-25 12:20 | NUR ---
CLINICAL PHARMACY NOTE: VANCOMYCIN PHARMACY TO DOSE Subjective: To continue vancomycin in this 78 y/o female for indication of PNA Objective: weight 87 kg height 165 cm BMI 32.3 BUN 19 scr 0.7 wbc 11.8 temp 98.1 Trough 05/24 at 2100:16.1 Assessment/Plan Since trough is within the range ,will continue same dose of vancomycin 1500mg IVPB q24h for now. Will follow daily.
[2018-05-25 15:41] VITALS: BP 124/61
--- NOTE | 2018-05-25 16:20 | NUR ---
REPORT CALLEED IN TO CRISTOBAL AT [facility]. NO APPARENT DISTRESS NOTED.
--- NOTE | 2018-05-25 16:30 | NUR ---
CALLED UP SON AND LEFT A MESSAGE ABOUT PT'S DISCHARGE.
--- NOTE | 2018-05-25 18:00 | NUR ---
PT IS DISCHARGED TO [facility]IA AMBULANCE.CONDITION IS STABLE.
[2018-05-30] MEDS ORDERED: AMIODARONE HCL 200 MG TABLET PO SCH (21:00)
== END 2018-05-25 18:40 | DRG 871 ==
LOC: ER 16:48 → DOU 20:10 → TELE-TD 20:45
PROVIDERS: ADMIT Nurse Practitioner Acute Care; ATTEND Nurse Practitioner Acute Care
PROC: 5A09357 Assistance with Respiratory Ventilation, Less than 24 Consecutive Hours, Continuous Positive Airway Pressure (ICD-10-PCS; 2018-05-21)
PROC: 5A09457 Assistance with Respiratory Ventilation, 24-96 Consecutive Hours, Continuous Positive Airway Pressure (ICD-10-PCS; principal; 2018-05-23)
PROC: 05HY33Z Insertion of Infusion Device into Upper Vein, Percutaneous Approach (ICD-10-PCS; 2018-05-23)
PROC: 05HY33Z Insertion of Infusion Device into Upper Vein, Percutaneous Approach (ICD-10-PCS; 2018-05-23)
DX: A41.51 Sepsis due to Escherichia coli [E. coli] (principal); N17.0 Acute kidney failure with tubular necrosis; R53.2 Functional quadriplegia; J96.22 Acute and chronic respiratory failure with hypercapnia; J96.21 Acute and chronic respiratory failure with hypoxia; I50.33 Acute on chronic diastolic (congestive) heart failure; J18.9 Pneumonia, unspecified organism; N39.0 Urinary tract infection, site not specified; E66.2 Morbid (severe) obesity with alveolar hypoventilation; L03.113 Cellulitis of right upper limb; J98.11 Atelectasis; E87.3 Alkalosis; D68.59 Other primary thrombophilia; G93.40 Encephalopathy, unspecified; I48.92 Unspecified atrial flutter; J44.0 Chronic obstructive pulmonary disease with (acute) lower respiratory infection; J44.1 Chronic obstructive pulmonary disease with (acute) exacerbation; R65.20 Severe sepsis without septic shock; Z16.12 Extended spectrum beta lactamase (ESBL) resistance; Z86.73 Personal history of transient ischemic attack (TIA), and cerebral infarction without residual deficits; I48.0 Paroxysmal atrial fibrillation; Z79.01 Long term (current) use of anticoagulants; Z68.32 Body mass index [BMI] 32.0-32.9, adult; G47.33 Obstructive sleep apnea (adult) (pediatric); Z99.81 Dependence on supplemental oxygen; R23.3 Spontaneous ecchymoses; I11.0 Hypertensive heart disease with heart failure; Z90.710 Acquired absence of both cervix and uterus; Z87.01 Personal history of pneumonia (recurrent); E11.9 Type 2 diabetes mellitus without complications; Z79.84 Long term (current) use of oral hypoglycemic drugs; F29 Unspecified psychosis not due to a substance or known physiological condition; E83.52 Hypercalcemia; M51.9 Unspecified thoracic, thoracolumbar and lumbosacral intervertebral disc disorder; I25.10 Atherosclerotic heart disease of native coronary artery without angina pectoris; E88.09 Other disorders of plasma-protein metabolism, not elsewhere classified; D64.9 Anemia, unspecified; F17.210 Nicotine dependence, cigarettes, uncomplicated; E86.1 Hypovolemia; Z91.19 Patient's noncompliance with other medical treatment and regimen
CPT/HCPCS: 36415; 36600; 71045; 71250; 73521; 83605; 83735; 84100; 84156; 84443; 85025; 87040; 87077; 87086; 93005; 94640; 94660; 94664; A4663; C1751; C1758; G0378; J0282; J1940; J1956; J2185; J2543; J3370; J3490; J3590; J7030; J7040; J7050; J7060